=== PATIENT | female | born 1950 | race Caucasian/White ===

== ENCOUNTER 2016-11-03 09:25 | Outpatient (CLI) | payer MEDICARE ==
[2016-11-03 10:31] LABS: Hemoglobin A1c 6.1 % (4.0-6.0)
[2016-11-03 10:39] LABS: #Eosinphils 0.2 thou/uL (0.0-0.7); #Lymphocytes 1.7 thou/uL (1.20-3.40); #Monocytes 0.5 thou/uL (0.11-0.59); #Neutrophils 3.9 thou/uL (1.40-6.50); %Basophils 0.7 % (0.0-1.0); %Eosinophils 2.8 % (0.0-10.0); %Lymphocytes 27.5 % (21.0-51.0); %Monocytes 7.7 % (0.0-10.0); %Neutrophils 61.2 % (42.0-75.0); Mean Corpuscular HGB CONC 33.8 g/dL (32.0-36.0); Mean Corpuscular Hemoglobin 29.3 pg (27.0-31.0); Mean Corpuscular Volume 86.8 fl (81.0-99.0); Mean Platelet Volume 6.9 fL (7.4-10.4); Platelet Count 236 thou/uL (130-400); RBC Distribution Width 12.1 % (11.5-14.5); Red Blood Cell (RBC) Count 5.11 mill/uL (4.20-5.40); White Blood Cell (WBC) Count 6.3 thou/uL (4.8-10.8)
== END 2016-11-03 09:26 | disposition home or self-care (01) ==
LOC: MADLABBHPM 09:25
PROVIDERS: ATTEND Family Medicine
DX: E03.9 Hypothyroidism, unspecified (principal); E11.9 Type 2 diabetes mellitus without complications; R30.0 Dysuria
CPT/HCPCS: 36415; 83036; 84443; 85025; 87077; 87086; 87186

== ENCOUNTER 2019-07-30 08:41 | Emergency (ER) | payer MEDICARE | END 2019-07-30 09:11 | disposition home or self-care (01) | LOC: MADERS 08:41 | DX: J20.8 Acute bronchitis due to other specified organisms (principal); I10 Essential (primary) hypertension; E11.9 Type 2 diabetes mellitus without complications; E03.9 Hypothyroidism, unspecified; F41.9 Anxiety disorder, unspecified; Z79.899 Other long term (current) drug therapy; Z79.84 Long term (current) use of oral hypoglycemic drugs ==

== ENCOUNTER 2024-03-18 22:38 | Emergency (ER) | payer OTHER ==
[2024-03-18] MEDS ORDERED: Sodium Chloride 0.9% 1,000 ML ONE (23:14)
[2024-03-18 23:26] LABS: ALT (SGPT) 23 U/L (8-55); AST (SGOT) 27 U/L (5-34); Alkaline Phosphatase 101 U/L (40-110); Anion Gap 17 mmol/L (10-20); BUN (Urea Nitrogen) 18 mg/dL (9.8-20.1); Bilirubin, Total 0.9 mg/dL (0.2-1.2); Calc. Creatinine Clearance 0 mL/min (70-130); Calcium 8.9 mg/dL (7.8-10.44); Carbon Dioxide 19 mmol/L (23-31); Chloride 103 mmol/L (98-107); Estimated GFR 78; Globulin 2.6 g/dL (2.4-3.5); Glucose 99 mg/dL (83-110); Potassium 4.2 mmol/L (3.5-5.1); Protein, Total 6.6 g/dL (5.8-8.1); Sodium 135 mmol/L (136-145); Troponin I 0.029 ng/mL (< 0.028)
[2024-03-18 23:29] LABS: INR-International Normal Ratio 1.2
[2024-03-18 23:30] LABS: PTT 33.1 sec (22.9-36.1)
[2024-03-18 23:33] LABS: Band 3 % (5-11); Hematocrit 41.4 % (36.0-47.0); Hemoglobin 13.2 g/dL (12.0-16.0); Lymphocytes 14 % (21-51); MDiff Complete? YES; Mean Corpuscular Hemoglobin 27.8 pg (27.0-31.0); Mean Platelet Volume 6.1 fL (7.4-10.4); Monocytes 6 % (0-10); Neutrophil 77 % (42-75); Platelet Count 151 10x3/uL (130-400); Red Blood Cell (RBC) Count 4.76 mill/uL (4.20-5.40)
[2024-03-19 00:17] LABS: Bilirubin Negative (Negative); Blood, Urine Trace (Negative); Glucose, Urine (Dipstick) Negative (Negative); Ketone, Urine Trace mg/dL (Negative); Leukocyte Trace (Negative); Nitrite Positive (Negative); Protein, Urine (Dipstick) 30 mg/dL (Neg-Trace); Urobilinogen > or = 8.0 mg/dL (Less than 2)
[2024-03-19 00:20] LABS: Clarity Cloudy (Clear); RBC/HPF 0-3 HPF (0-3)
[2024-03-19 00:21] LABS: Bacteria/HPF 2+ HPF (None Seen); CAUTI Indications for Culture Fever or rigors; Squamous Epithelial 21-50 HPF (0-3); Urine Culture Reflex Yes Yes
[2024-03-19] MEDS ORDERED: cefTRIAXone (ROCEPHIN) 1 GM VIAL ONE (00:30)
[2024-03-19] MEDS ORDERED: Sodium Chloride 0.9% 100 ML ONE (00:31)
[2024-03-19 02:21] LABS: Troponin I 0.047 ng/mL (< 0.028)
[2024-03-19 04:57] LABS: Troponin I 0.072 ng/mL (< 0.028)
[2024-03-19] MEDS ORDERED: Enoxaparin 80 MG (0.8 mL) SYRINGE ONE (08:07)
[2024-03-19 11:02] LABS: Magnesium 1.4 mg/dL (1.6-2.6)
[2024-03-19 11:03] LABS: Troponin I 0.051 ng/mL (< 0.028)
[2024-03-19 11:26] LABS: Influenza A by NAA DETECTED (NotDetected); Influenza B by NAA Not Detected (NotDetected); SARS-CoV-2 NAA Rapid Test Not Detected (NotDetected)
[2024-03-19] MEDS ORDERED: Magnesium Oxide 400 MG TAB ONE (11:50)
== END 2024-03-19 16:12 | disposition short-term general hospital (02) ==
LOC: MADERS 22:38
DX: I67.4 Hypertensive encephalopathy (principal); E83.42 Hypomagnesemia; J11.1 Influenza due to unidentified influenza virus with other respiratory manifestations; N39.0 Urinary tract infection, site not specified; I21.4 Non-ST elevation (NSTEMI) myocardial infarction; E11.9 Type 2 diabetes mellitus without complications; I10 Essential (primary) hypertension; E03.9 Hypothyroidism, unspecified; Z79.82 Long term (current) use of aspirin; Z79.899 Other long term (current) drug therapy
CPT/HCPCS: 70450; 74022; 80053; 83605; 84484; 85025; 85610; 85730; 87040; 93005; J7050; 36416; 71045; 81001; 83735; 83880; 87086; 96361; 96374; J0696; J1650

== ENCOUNTER 2025-08-04 08:42 | Outpatient (CLI) | payer OTHER ==
[2025-08-04 09:16] LABS: ALT (SGPT) 23 U/L (Less than 34); AST (SGOT) 26 U/L (11-34); Albumin 3.9 g/dL (3.1-4.5); Alkaline Phosphatase 121 U/L (40-110); Anion Gap 19 mmol/L (10-20); BUN (Urea Nitrogen) 32 mg/dL (9.8-20.1); Bilirubin, Total 0.6 mg/dL (0.3-1.2); Calc. Creatinine Clearance 0 mL/min (70-130); Calcium 9.3 mg/dL (7.8-10.44); Carbon Dioxide 26 mmol/L (23-31); Cardiac Risk 2.4 (Less than 4.5); Chloride 98 mmol/L (98-107); Cholesterol 126 mg/dl (< 200 Desired); Globulin 3.3 g/dL (2.4-3.5); Glucose 133 mg/dL (83-110); HDL Cholesterol 52 mg/dL (>60 Neg Risk); LDL Cholesterol, Calculated 53 mg/dL; Potassium 3.9 mmol/L (3.5-5.1); Sodium 139 mmol/L (136-145); Triglycerides 107 mg/dL (Less than 150)
== END 2025-08-04 08:43 | disposition home or self-care (01) ==
LOC: MADLAB 08:42
PROVIDERS: ATTEND Family Medicine
DX: I11.0 Hypertensive heart disease with heart failure (principal); I50.9 Heart failure, unspecified; E11.65 Type 2 diabetes mellitus with hyperglycemia; E03.9 Hypothyroidism, unspecified; E78.2 Mixed hyperlipidemia
CPT/HCPCS: 36415; 80053; 80061; 82043; 83036; 84443